=== PATIENT | male | born 1955 | race Caucasian/White ===

== ENCOUNTER 2017-05-28 13:17 | Emergency (ER) | payer MEDICAID ==
[2017-05-28 13:22] VITALS: BP 136/81; PULSE 90; RESP 18; TEMP 98.3; O2SAT 97
--- NOTE | 2017-05-28 14:29 | C.PDOC ---
History Of Present Illness 61 y/o male c/o decreased hearing from the right ear for over a week. Patient states he was seen by PMD and given ear wax removal drops, which he has been using for the past few days, without relief. Notes he also had similar symptoms to left ear, but not as bad currently. Denies fever, chills, headache, sore throat, cough, or other associated symptoms. Time Seen by Provider: 05/28/17 13:39 Chief Complaint (Nursing): ENT Problem History Per: Patient History/Exam Limitations: None Onset/Duration Of Symptoms: Days Current Symptoms Are (Timing): Still Present Quality (Ear): Other (decreased hearing). denies: Pain W/Touch, Discharge Anticoagulant/Antiplatlet Use?: No Past Medical History Reviewed: Historical Data, Nursing Documentation, Vital Signs Vital Signs: Last Vital Signs Temp 98.3 F 05/28/17 13:19 Pulse 90 05/28/17 13:19 Resp 18 05/28/17 13:19 BP 136/81 05/28/17 13:19 Pulse Ox 97 05/28/17 14:30 - Medical History PMH: No Chronic Diseases Surgical History: No Surg Hx Family History: States: Unknown Family Hx - Social History Hx Tobacco Use: Yes Hx Alcohol Use: Yes Hx Substance Use: No - Immunization History Hx Tetanus Toxoid Vaccination: No Hx Influenza Vaccination: No Hx Pneumococcal Vaccination: No Review Of Systems Except As Marked, All Systems Reviewed And Found Negative. Constitutional: Negative for: Fever, Chills ENT: Positive for: Ear Pain (right). Negative for: Ear Discharge, Nose Congestion, Throat Pain, Throat Swelling Skin: Negative for: Rash Neurological: Negative for: Headache, Dizziness Physical Exam - Physical Exam Appears: Non-toxic, No Acute Distress Skin: Normal Color, Warm, Dry Head: Atraumatic, Normacephalic Eye(s): bilateral: Normal Inspection, EOMI Ear(s): Left: Other (excessive wax, TM visualized ), Right: TM Obscured By Wax ( no tragal tenderness) Nose: Normal Oral Mucosa: Moist Throat: Normal, No Erythema, No Exudate Neck: Normal ROM, Supple Chest: Symmetrical Neurological/Psych: Oriented x3, Normal Speech Gait: Steady ED Course And Treatment O2 Sat by Pulse Oximetry: 97 (RA) Pulse Ox Interpretation: Normal Medical Decision Making Medical Decision Making: Ear lavage performed. Patient reports improvement and is able to hear clearly. Patient advised to continue applying ear-drops as directed and instructed to follow up with PMD within 1-2 days for further evaluation. Disposition Counseled Patient/Family Regarding: Diagnosis, Need For Followup - Disposition Referrals: Mars Copeland MD [Staff Provider] - Disposition: HOME/ ROUTINE Disposition Time: 14:25 Condition: STABLE Additional Instructions: Continue using drops 1-3 drops in ear 3 times per day Instructions: Cerumen Impaction (ED) - POA Present On Arrival: None - Clinical Impression Clinical Impression: Cerumen impaction - PA / ADMITTING COUNSELOR / Resident Statement MD/DO has reviewed & agrees with the documentation as recorded. - Scribe Statement The provider has reviewed the documentation as recorded by the Scribbeatriz Berumen All medical record entries made by the Scribe were at my direction and personally dictated by me. I have reviewed the chart and agree that the record accurately reflects my personal performance of the history, physical exam, medical decision making, and the department course for this patient. I have also personally directed, reviewed, and agree with the discharge instructions and disposition. Procedures - Ear Wax Removal Both Ears Cerumenolytic Used: 5-10 % Sodium Bicarb solution Result: Re-examined: cerumen removed completely (from right ear), some cerumen remains (to left) TM Examination: TM(s) intact, normal appearance Ear Canal Exam: atraumatic Patient Tolerated Procedure: well Complications: no problems Technique: ear canal irrigated, ear canal curetted
== END 2017-05-28 14:29 | disposition home or self-care (01) ==
LOC: C.ER 13:17
DX: H61.21 Impacted cerumen, right ear (principal)